=== PATIENT | male | born 1965 | race Caucasian/White ===

== ENCOUNTER 2017-11-15 06:54 | Day surgery (SDC) | payer BC ==
[~2017-11-15 06:54] MED LIST: Buffered Lidocaine 0.9% SYRIN* 5 ML/SYR SYRINGE INTRADERM ONE
[2017-11-15] MEDS ORDERED: ceFAZolin 1 GM VIAL(*) ONE (07:07)
[2017-11-15] MEDS ORDERED: ceFAZolin 2 GM PREMIX (*) 2 GM/50 ML BAG IVPB ONE (07:08)
[2017-11-15] MEDS ORDERED: Bupivacaine 0.25% SDV* 30 ML ONE (08:14)
[2017-11-15] MEDS ORDERED: Lidocaine 2% PF * 5 ML VIAL ONE (08:35)
[2017-11-15] MEDS ORDERED: Propofol* 10 MG/ML 20 ML BTL IV PUSH ONE (08:35)
[2017-11-15] MEDS ORDERED: Lidocaine 1% INJ* 10 MG/ML 30 ML SDV ONE (08:40)
[2017-11-15] MEDS ORDERED: Naloxone* 0.4 MG/ML 1 ML VIAL IV PRN (08:54)
[2017-11-15 09:25] VITALS: BP 163/77
== END 2017-11-15 09:47 | disposition home or self-care (01) ==
LOC: OREAST 06:54
PROVIDERS: ATTEND Plastic Surgery
DX: L72.0 Epidermal cyst (principal); I10 Essential (primary) hypertension; G47.33 Obstructive sleep apnea (adult) (pediatric); J45.998 Other asthma; Z68.39 Body mass index [BMI] 39.0-39.9, adult
CPT/HCPCS: 88304; J0690; J2704